=== PATIENT | female | born 1995 | race Caucasian/White ===

== ENCOUNTER 2017-12-02 15:02 | Emergency (ER) | payer OTHER, BC ==
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
[2017-12-02] MEDS ORDERED: ORPHENADRINE 60MG/2ML INJ IM ONE (15:25)
[2017-12-02] MEDS ORDERED: KETOROLAC 30 MG/ML VIAL IM ONE (15:25)
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
[2017-12-02] MEDS ORDERED: KET10 PO (17:16)
[2017-12-02] MEDS ORDERED: CYCL10TA29 PO (17:16)
[2017-12-02 17:19] VITALS: BP 117/64
== END 2017-12-02 17:27 | disposition home or self-care (01) ==
LOC: ER 15:17
DX: S16.1XXA Strain of muscle, fascia and tendon at neck level, initial encounter (principal); S20.229A Contusion of unspecified back wall of thorax, initial encounter; S39.012A Strain of muscle, fascia and tendon of lower back, initial encounter
CPT/HCPCS: 72120; 81025; 96372; 99284; J1885; J2360; 72072

== ENCOUNTER → 2018-05-12 | Outpatient (CLI) | payer BC ==
[~2018-05-12] MED LIST: CYCL10TA29 PO; KET10 PO
--- NOTE | 2018-05-12 10:38 | RADIOLOGY IMAGING REPORT ---
FAC[place] [facility] [place] NAME: Elissa Bliss : 1995 MR: [id number] V: [id number] EXAM DATE: ORDERING PHYSICIAN: TIMUR MCCAIN TECHNOLOGIST: [place] [facility] [place] Patient: Elissa Bliss : 1995 Visit/Account:[id number] Date of Sevice: 05/12/[address] scan without contrast COMPARISONS: None ADDITIONAL PERTINENT HISTORY: Headache for 2 days with nausea and vomiting. TECHNIQUE: Multiple axial images were obtained from the skull base to the vertex without IV contrast . One of the following dose optimization techniques was utilized in the performance of this exam: Aut omated exposure control; adjustment of the mA and/or kV according to the patient's size; or use of an iterative reconstruction technique. Specific details can be referenced in the facility's radiology CT exam operational policy. FINDINGS: Midline shift: Negative Ventricles: Negative Brain parenchyma: Negative Extra-axial spaces: Negative Intracranial vasculature: Negative Osseous structures: Negative Paranasal sinuses and mastoid air cells: Negative Surrounding soft tissues and orbits: Negative IMPRESSION: Normal head CT scan without contrast. Report Dictated By: Victoriano Lion MD at 05/12/2018 10:31 AM Report E-Signed By: Victoriano Lion MD at 05/12/2018 10:33 AM WSN:[email or web address]
== END ==
LOC: CT 10:04
PROVIDERS: ATTEND Nurse Practitioner Family
DX: R51 Headache (principal)
CPT/HCPCS: 70450